=== PATIENT | female | born 1990 | race Two or more races ===

== ENCOUNTER 2022-10-12 08:13 | Emergency (ER) | payer BC ==
[~2022-10-12] VITALS: Ht 165.1 cm; Wt 56.7 kg
== END 2022-10-12 12:27 | disposition home or self-care (01) ==
LOC: ER 08:13
DX: S93.401A Sprain of unspecified ligament of right ankle, initial encounter (principal); W18.39XA Other fall on same level, initial encounter; Y93.9 Activity, unspecified; Y92.9 Unspecified place or not applicable